=== PATIENT | male | born 1970 | race Caucasian/White ===

== ENCOUNTER → 2017-09-03 | Outpatient (CLI) | payer OTHER, MEDICARE ==
--- NOTE | 2017-09-03 15:52 | KCIC ---
Indication: Hypothyroidism. The right lobe of the thyroid measures 3.5 x 1.4 x 1.7 cm and the left lobe measures 3.6 x 1.6 x 1.7 cm. The isthmus is 2 mm in thickness. Both lobes demonstrate homogeneous echotexture. No discrete thyroid mass is detected. IMPRESSION: Unremarkable thyroid ultrasound. Electronically signed by: Broderick Ford MD (09/03/2017 3:49 PM) [id number]
== END | disposition home or self-care (01) ==
LOC: KCIC US 14:00
PROVIDERS: ATTEND Physician Assistant Surgical
DX: E03.9 Hypothyroidism, unspecified (principal)
CPT/HCPCS: 76536

== ENCOUNTER → 2018-01-11 | Outpatient (CLI) | payer OTHER, MEDICARE ==
[~2018-01-11] MED LIST: CONTRAST GIVEN MC
[2018-01-11] MEDS: IOHEXOL 300 MG/ML 100ML VIAL. IV (15:24)
[2018-01-11 15:35] LABS: ISTAT CREATININE 0.9 mg/dL (0.7-1.3)
== END | disposition home or self-care (01) ==
LOC: KCIC CT 14:51
DX: D10.4 Benign neoplasm of tonsil (principal); Z87.891 Personal history of nicotine dependence
CPT/HCPCS: 70492; 82565; Q9967

== ENCOUNTER 2018-02-18 08:52 | Outpatient (CLI) | payer OTHER, MEDICARE ==
[2018-02-18 09:27] LABS: ADD MAN DIFF? NO
[2018-02-18 09:29] LABS: BASO # 0.1 x10^3/uL (0.0-0.2); BASO % 0 % (0-3); EOS # 0.2 x10^3/uL (0.0-0.7); EOS % 1 % (0-3); HEMATOCRIT 54.1 % (39.0-53.0); HEMOGLOBIN 18.8 g/dL (13.0-17.5); LYMPH # 3.4 x10^3/uL (1.0-4.8); LYMPH % 21 % (24-48); MEAN CORPUSCULAR HEMOGLOBIN 32 pg (25-35); MEAN CORPUSCULAR HGB CONC 35 g/dL (31-37); MEAN CORPUSCULAR VOLUME 91 fL (79-100); MONO % 6 % (0-9); NEUT # 12.2 x10^3uL (1.8-7.7); NEUT % 72 % (31-73); PLATELET COUNT 197 x10^3/uL (140-400); RED BLOOD COUNT 5.92 x10^6/uL (4.30-5.70); RED CELL DISTRIBUTION WIDTH 13.6 % (11.5-14.5); WHITE BLOOD COUNT 16.8 x10^3/uL (4.0-11.0)
[2018-02-18] MEDS ORDERED: LIDOCAINE WITH 8.4% SOD BICARB 3 ML DISP.SYRIN. (09:31)
[2018-02-18 09:48] LABS: INR 1.1 (0.8-1.1); PARTIAL THROMBOPLASTIN TIME 23 SEC (24-38); PROTHROMBIN TIME PATIENT 13.6 SEC (11.7-14.0)
[2018-02-18 09:50] LABS: POC GLUCOSE 140 mg/dL (70-99)
[2018-02-18] MEDS ORDERED: ONDANSETRON PF 4 MG/2 ML VIAL. (09:56)
[2018-02-18] MEDS: ONDANSETRON PF 4 MG/2 ML VIAL. IV (10:06)
[2018-02-18] MEDS ORDERED: MIDAZOLAM HCL/PF 2 MG/2 ML VIAL. (10:16)
[2018-02-18] MEDS ORDERED: fentaNYL PF VIAL 100 MCG/2 ML VIAL (10:16)
[2018-02-18] MEDS: LIDOCAINE WITH 8.4% SOD BICARB 3 ML DISP.SYRIN. IJ (10:32)
[2018-02-18] MEDS: fentaNYL PF VIAL 100 MCG/2 ML VIAL IV (10:32)
[2018-02-18] MEDS: MIDAZOLAM HCL/PF 2 MG/2 ML VIAL. IV (10:33)
== END 2018-02-18 13:00 | disposition home or self-care (01) ==
LOC: INTRAD 08:52
DX: D75.1 Secondary polycythemia (principal); E11.9 Type 2 diabetes mellitus without complications; I10 Essential (primary) hypertension; J44.9 Chronic obstructive pulmonary disease, unspecified; G47.33 Obstructive sleep apnea (adult) (pediatric); F41.9 Anxiety disorder, unspecified; F32.9 Major depressive disorder, single episode, unspecified; F17.200 Nicotine dependence, unspecified, uncomplicated; Z88.5 Allergy status to narcotic agent; Z88.8 Allergy status to other drugs, medicaments and biological substances; Z79.899 Other long term (current) drug therapy; Z79.01 Long term (current) use of anticoagulants
CPT/HCPCS: 36415; 38222; 77012; 82962; 85025; 85610; 85730; 88184; 88185; 88237; 88305; 88311; 88313; 99152; J2250; J2405; J3010